=== PATIENT | female | born 1955 ===

== ENCOUNTER 2022-03-23 16:57 | Inpatient (IN) | payer MEDICARE ==
[2022-03-24 06:54] LABS: Basophils % (Auto) 0.4 % (0.0-1.8); Eosinophils # (Auto) 0.1 K/mm3 (0.0-0.4); Eosinophils % (Auto) 1.8 % (0.0-4.3); Hematocrit 39.9 % (30.3-42.9); Hemoglobin 13.3 gm/dl (10.1-14.3); Lymphocytes # (Auto) 2.1 K/mm3 (1.2-5.4); Lymphocytes % (Auto) 25.7 % (13.4-35.0); Mean Corpuscular HGB Conc 33 % (30-34); Mean Corpuscular Volume 82 fl (79-97); Monocytes # (Auto) 0.5 K/mm3 (0.0-0.8); Monocytes % (Auto) 5.5 % (0.0-7.3); Platelet Count 254 K/mm3 (140-440); Red Blood Count 4.86 M/mm3 (3.65-5.03); Red Cell Distribution Width 13.3 % (13.2-15.2)
[2022-03-24 07:19] LABS: Alanine Aminotransferase 16 units/L (7-56); Albumin 3.6 g/dL (3.9-5); Blood Urea Nitrogen 18 mg/dL (7-17); Calcium 8.6 mg/dL (8.4-10.2); HDL Cholesterol 54 mg/dL (40-59); Hemolysis Index 4; LDL Cholesterol,Direct 97 mg/dL (50-130)
[2022-03-24 07:24] LABS: BUN/Creatinine Ratio 36
--- NOTE | 2022-03-24 17:56 | History and Physical Report ---
GP History & Physical - History of Present Illness Date of admission: 03/24/22 Date of Examination: 03/24/22 Reason for Admission: Severe anxiety/depression History of Present Illness: 66 year old female seen in her room today. Patient was unable to communicate with me effectively. Spoke with patients daughter who states that patient has not been sleeping or eating and generally not wanting to participate in any activity. Daughter was not able to confirm patients past dx or medication she was on. PAST PSYCHIATRIC HISTORY: Diagnoses: Depression Suicide attempts or Self-harm behavior: Unable to assess Prior psychiatric hospitalizations:Unable to assess Substance Abuse history:Unable to assess Previous psychiatric medications tried: Unable to assess Outpatient treatment: Unable to assess PAST MEDICAL HISTORY: Family Psychiatric History None reported or documented SOCIAL HISTORY Marital Status: Unable to assess Living Arrangements: With family Employment Status: Unable to assess Access to guns/weapons: Unable to assess Education: Unable to assess History of Abuse: Unable to assess Legal History: Unable to assess REVIEW OF SYSTEMS ROS cannot be reliably obtained from the patient due to her confusion and somnolence. Constitutional: Negative for weight loss ENT: Negative for stridor Respiratory: Negative for cough or hemoptysis All other systems reviewed and are negative Diagnoses: Major Depressive Disorder Treatment Plan Patient will be admitted for inpatient psychiatric evaluation, medication adjustment and close monitoring The patient's behavior, mood, sleep and appetite will be closely monitored. Patient will be enrolled in individual and group therapeutic sessions and encouraged to attend. Patient will be provided with a safe and structured environment. Patient's physical health needs will be addressed by the Hospitalist. Hospitalist Consulted Labs including CBC, CMP, Lipid profile and Hemoglobin A1C ordered Social Assessment will be completed and the [facility] will work with patient and family to ensure a suitable and safe disposition Medication adjustment will be made as clinically indicated Usual Wellness Hinduism/Preservation: - Start Trazodone 50 mg po QHS The patient agreed on the treatment plan, understood the risk, benefit, alternative treatment, potential consequence of no treatment, and gave informed consent. Legal Status: Involuntary Reaction to Hospitalization: Accepting Medications and Allergies Allergies Allergy/AdvReac Type Severity Reaction Status Date / Time No Known Allergies Allergy Unverified 03/23/22 18:06 Home Medications Medication Instructions Recorded Confirmed Last Taken Type Metoprolol [Lopressor] 25 mg PO BID 03/24/22 03/24/22 Unknown History lisinopriL [Lisinopril] 10 mg PO DAILY 03/24/22 03/24/22 Unknown History Results - Results Labs/Vitals: Laboratory Last Values WBC 8.2 K/mm3 (4.5-11.0) 03/24/22 06:06 RBC 4.86 M/mm3 (3.65-5.03) 03/24/22 06:06 Hgb 13.3 gm/dl (10.1-14.3) 03/24/22 06:06 Hct 39.9 % (30.3-42.9) 03/24/22 06:06 MCV 82 fl (79-97) 03/24/22 06:06 MCH 27 pg (28-32) L 03/24/22 06:06 MCHC 33 % (30-34) 03/24/22 06:06 RDW 13.3 % (13.2-15.2) 03/24/22 06:06 Plt Count 254 K/mm3 (140-440) 03/24/22 06:06 Lymph % (Auto) 25.7 % (13.4-35.0) 03/24/22 06:06 [place] % (Auto) 5.5 % (0.0-7.3) 03/24/22 06:06 Eos % (Auto) 1.8 % (0.0-4.3) 03/24/22 06:06 Baso % (Auto) 0.4 % (0.0-1.8) 03/24/22 06:06 Lymph # (Auto) 2.1 K/mm3 (1.2-5.4) 03/24/22 06:06 [place] # (Auto) 0.5 K/mm3 (0.0-0.8) 03/24/22 06:06 Eos # (Auto) 0.1 K/mm3 (0.0-0.4) 03/24/22 06:06 Baso # (Auto) 0.0 K/mm3 (0.0-0.1) 03/24/22 06:06 Seg Neutrophils % 66.6 % (40.0-70.0) 03/24/22 06:06 Seg Neutrophils # 5.5 K/mm3 (1.8-7.7) 03/24/22 06:06 Sodium 132 mmol/L (137-145) L 03/24/22 06:06 Potassium 4.0 mmol/L (3.6-5.0) 03/24/22 06:06 Chloride 100.3 mmol/L (98-107) 03/24/22 06:06 Carbon Dioxide 24 mmol/L (22-30) 03/24/22 06:06 Anion Gap 12 mmol/L 03/24/22 06:06 BUN 18 mg/dL (7-17) H 03/24/22 06:06 Creatinine 0.5 mg/dL (0.6-1.2) L 03/24/22 06:06 Estimated GFR > 60 ml/min 03/24/22 06:06 BUN/Creatinine Ratio 36 % 03/24/22 06:06 Glucose 236 mg/dL (65-100) H 03/24/22 06:06 POC Glucose 212 mg/dL (70-105) H 03/24/22 16:16 Hemoglobin A1c 11.2 % (4-6) H 03/24/22 06:06 Calcium 8.6 mg/dL (8.4-10.2) 03/24/22 06:06 Total Bilirubin 0.30 mg/dL (0.1-1.2) 03/24/22 06:06 AST 13 units/L (5-40) 03/24/22 06:06 ALT 16 units/L (7-56) 03/24/22 06:06 Alkaline Phosphatase 67 units/L (35-129) 03/24/22 06:06 Total Protein 6.2 g/dL (6.3-8.2) L 03/24/22 06:06 Albumin 3.6 g/dL (3.9-5) L 03/24/22 06:06 Albumin/Globulin Ratio 1.4 % 03/24/22 06:06 Triglycerides 93 mg/dL (2-149) 03/24/22 06:06 Cholesterol 162 mg/dL (50-199) 03/24/22 06:06 LDL Cholesterol Direct 97 mg/dL (50-130) 03/24/22 06:06 HDL Cholesterol 54 mg/dL (40-59) 03/24/22 06:06 Cholesterol/HDL Ratio 3.00 % 03/24/22 06:06 TSH 0.682 mlU/mL (0.270-4.200) 03/24/22 06:06 Last Vital Signs Temp 97.4 F L 03/24/22 07:00 Pulse 71 03/24/22 07:00 Resp 18 03/24/22 07:00 BP 183/75 03/24/22 07:00 Pulse Ox 99 03/24/22 07:00 Physical Examination - Constitutional Vitals: Vital Signs Temp Pulse Resp BP Pulse Ox 97.4 F L 71 18 183/75 99 03/24/22 07:00 03/24/22 07:00 03/24/22 07:00 03/24/22 07:00 03/24/22 07:00 Temperature -Last 24 Hours Temperature 97.4 F Temperature 97.5 F Mental Status Exam - Vital signs Last Vital Signs Temp 97.4 F L 03/24/22 07:00 Pulse 71 03/24/22 07:00 Resp 18 03/24/22 07:00 BP 183/75 03/24/22 07:00 Pulse Ox 99 03/24/22 07:00 Physician Certification - Certification Statement Physician Certification Statement: This is an acknowledgement statement that JUANITO DURANMONIKASTEVEN MORGAN is a 66 year old F who requires inpatient psychiatric admission for treatment which could reasonably be expected to improve the patient's condition for Estimated period of time patient will need to remain in the hospital: [ ] Plan for post-hospital care: [ ]
[2022-03-24] MEDS ORDERED: HALOPERIDOL LACTATE 5 MG/1 ML INJ IM PRN (18:00)
--- NOTE | 2022-03-24 19:34 | Consultation ---
History of Present Illness - Reason for Consult Consult date: 03/24/22 Medical management - History of Present Illness The patient is a 66-year-old female with past medical history of type 2 diabetes mellitus, hypertension, and depression who is being managed for loss of appetite and energy. Hospitalist service was consulted for medical management. Past History Past Medical History: diabetes, hypertension Past Surgical History: No surgical history Social history: lives with family, full code Family history: hypertension Medications and Allergies Allergies Allergy/AdvReac Type Severity Reaction Status Date / Time No Known Allergies Allergy Verified 03/24/22 18:00 Home Medications Medication Instructions Recorded Confirmed Last Taken Type Metoprolol [Lopressor] 25 mg PO BID 03/24/22 03/24/22 Unknown History lisinopriL [Lisinopril] 10 mg PO DAILY 03/24/22 03/24/22 Unknown History Active Meds: Active Medications Fish Oil ([place]-3 Fatty Acids/Fish Oil 1 Gram Cap) 4,000 mg PO QDAY FLY Glipizide (Glipizide 5 Mg Tab) 5 mg PO QDDIAB FLY Haloperidol Lactate (Haloperidol Lactate 5 Mg/1 Ml Inj) 5 mg IM Q6H PRN PRN Reason: Agitation Lisinopril (Lisinopril 10 Mg Tab) 20 mg PO QDAY FLY Metformin HCl (Metformin 500 Mg Tab) 1,000 mg PO BIDDIAB FLY Nifedipine (Nifedipine Xl 30 Mg Tab) 30 mg PO QDAY FLY Trazodone HCl (Trazodone 50 Mg Tab) 50 mg PO QHS FLY Review of Systems ROS unobtainable: due to mental status Exam - Physical Exam Narrative exam: Unable to perform full physical exam as the patient is refusing. - Constitutional Vitals: Temp Pulse Resp BP Pulse Ox 97.4 F L 71 18 183/75 99 03/24/22 07:00 03/24/22 07:00 03/24/22 07:00 03/24/22 07:00 03/24/22 17:53 General appearance: Present: no acute distress, well-nourished - EENT Eyes: Present: PERRL, EOM intact Results - Labs CBC & Chem 7: 03/24/22 06:06 03/24/22 06:06 Labs: Abnormal lab results 03/24/22 03/24/22 03/24/22 Range/Units 06:06 06:06 06:06 MCH 27 L (28-32) pg Sodium 132 L (137-145) mmol/L BUN 18 H (7-17) mg/dL Creatinine 0.5 L (0.6-1.2) mg/dL Glucose 236 H (65-100) mg/dL POC Glucose (70-105) mg/dL Hemoglobin A1c 11.2 H (4-6) % Total Protein 6.2 L (6.3-8.2) g/dL Albumin 3.6 L (3.9-5) g/dL 03/24/22 03/24/22 03/24/22 Range/Units 07:06 11:51 16:16 MCH (28-32) pg Sodium (137-145) mmol/L BUN (7-17) mg/dL Creatinine (0.6-1.2) mg/dL Glucose (65-100) mg/dL POC Glucose 225 H 241 H 212 H (70-105) mg/dL Hemoglobin A1c (4-6) % Total Protein (6.3-8.2) g/dL Albumin (3.9-5) g/dL Assessment and Plan The patient is a 66-year-old female with past medical history of type 2 diabetes mellitus, hypertension, and depression who is being managed for loss of appetite and energy. Hospitalist service was consulted for medical management. #Depression Management per primary team #Hypertension - home medications: Lisinopril 10 mg daily, metoprolol tartrate 25 mg twice daily - current medications: Nifedipine 30 mg daily, lisinopril 20 mg daily - SBP goal <160 and DBP goal <90 while inpatient - continue to monitor #Non-insulin dependent type II diabetes mellitus with hyperglycemia - hemoglobin A1c: 11.2 - home regimen: N/A - current regimen: Metformin 1000 mg twice daily, glipizide 5 mg daily - blood glucose goal 140-180 while inpatient - continue to monitor #Mild protein caloric malnutrition Albumin 3.6 Starting dietary supplementation #Advanced care planning -Disease education conducted, care plan discussed, diagnoses discussed, prognosis discussed, and patient acknowledges understanding with care plan -Time: +30 min Thank you for this interesting consult. We will continue to follow.
[2022-03-24] MEDS: NIFEdipine XL 30 MG TAB PO SCH (21:11)
[2022-03-24] MEDS: LISINOPRIL 10 MG TAB PO SCH (21:11)
[2022-03-24] MEDS: traZODone 50 MG TAB PO SCH ×2 (21:13→22:58)
[2022-03-25] MEDS: OMEGA-3 FATTY ACIDS/FISH OIL 1 GRAM CAP PO SCH (09:23)
[2022-03-25] MEDS: metFORMIN 500 MG TAB PO SCH ×2 (09:23→17:00)
[2022-03-25] MEDS: glipiZIDE 5 MG TAB PO SCH (09:23)
[2022-03-25] MEDS: LISINOPRIL 10 MG TAB PO SCH (09:24)
[2022-03-25] MEDS: NIFEdipine XL 30 MG TAB PO SCH (09:26)
[2022-03-25] MEDS: INSULIN NPH/REGULAR 70/30 INJ SUB-Q SCH ×3 (12:04→18:24)
[2022-03-25] MEDS: INSULIN REGULAR, HUMAN 100 UNITS/1 ML SUB-Q SCH ×3 (12:05→21:48)
--- NOTE | 2022-03-25 14:54 | Progress Note ---
Subjective Date of service: 03/25/22 Subjective Comment: DATE SEEN: 03/25/2022 Patient seen today. Patient was on the phone video calling with her son. Patient was up and dressed looking better. Patients son made inquiries about patients care. and care was explained to him in details. Son informed us on patients medication, and list will be updated. Patient did not say anything though out the time i spoke with son. PAST PSYCHIATRIC HISTORY: Diagnoses: Depression Suicide attempts or Self-harm behavior: Unable to assess Prior psychiatric hospitalizations:Unable to assess Substance Abuse history:Unable to assess Previous psychiatric medications tried: Unable to assess Outpatient treatment: Unable to assess PAST MEDICAL HISTORY: Family Psychiatric History None reported or documented SOCIAL HISTORY Marital Status: Unable to assess Living Arrangements: With family Employment Status: Unable to assess Access to guns/weapons: Unable to assess Education: Unable to assess History of Abuse: Unable to assess Legal History: Unable to assess REVIEW OF SYSTEMS ROS cannot be reliably obtained from the patient due to her confusion and somnolence. Constitutional: Negative for weight loss ENT: Negative for stridor Respiratory: Negative for cough or hemoptysis All other systems reviewed and are negative Diagnoses: Major Depressive Disorder Treatment Plan Patient will be admitted for inpatient psychiatric evaluation, medication adjustment and close monitoring The patient's behavior, mood, sleep and appetite will be closely monitored. Patient will be enrolled in individual and group therapeutic sessions and encouraged to attend. Patient will be provided with a safe and structured environment. Patient's physical health needs will be addressed by the Hospitalist. Hospitalist Consulted Labs including CBC, CMP, Lipid profile and Hemoglobin A1C ordered Social Assessment will be completed and the Transitional Living Specialist will work with patient and family to ensure a suitable and safe disposition Medication adjustment will be made as clinically indicated Usual Wellness Caodaism/Preservation: - Start Trazodone 50 mg po QHS The patient agreed on the treatment plan, understood the risk, benefit, alternative treatment, potential consequence of no treatment, and gave informed consent. Legal Status: Involuntary Reaction to Hospitalization: Accepting Medications and Allergies Medications and Allergies Allergies Allergy/AdvReac Type Severity Reaction Status Date / Time No Known Allergies Allergy Verified 03/24/22 18:00 Home Medications Medication Instructions Recorded Confirmed Last Taken Type Metoprolol [Lopressor] 25 mg PO BID 03/24/22 03/24/22 Unknown History lisinopriL [Lisinopril] 10 mg PO DAILY 03/24/22 03/24/22 Unknown History Active Meds: Active Medications Fish Oil ([place]-3 Fatty Acids/Fish Oil 1 Gram Cap) 4,000 mg PO QDAY [facility] Last Admin: 03/25/22 09:23 Dose: Not Given Glipizide (Glipizide 5 Mg Tab) 5 mg PO QDDIAB [facility] Last Admin: 03/25/22 09:23 Dose: Not Given Haloperidol Lactate (Haloperidol Lactate 5 Mg/1 Ml Inj) 5 mg IM Q6H PRN PRN Reason: Agitation Insulin Human Isoph/Insulin Regular (Insulin Nph/Regular 70/30 Inj) 10 unit SUB-Q BIDDIAB [facility] Last Admin: 03/25/22 12:04 Dose: Not Given Insulin Human Regular (Insulin Regular, Human 100 Units/1 Ml) 0 units SUB-Q [facility]; Protocol Last Admin: 03/25/22 12:05 Dose: Not Given Lisinopril (Lisinopril 10 Mg Tab) 20 mg PO QDAY [facility] Last Admin: 03/25/22 09:24 Dose: Not Given Metformin HCl (Metformin 500 Mg Tab) 1,000 mg PO BIDDIAB [facility] Last Admin: 03/25/22 09:23 Dose: Not Given Nifedipine (Nifedipine Xl 30 Mg Tab) 30 mg PO QDAY [facility] Last Admin: 03/25/22 09:26 Dose: Not Given Trazodone HCl (Trazodone 50 Mg Tab) 50 mg PO QHS [facility] Last Admin: 03/24/22 22:58 Dose: 50 mg Results - Results Labs/Vitals: Laboratory Last Values WBC 8.2 K/mm3 (4.5-11.0) 03/24/22 06:06 RBC 4.86 M/mm3 (3.65-5.03) 03/24/22 06:06 Hgb 13.3 gm/dl (10.1-14.3) 03/24/22 06:06 Hct 39.9 % (30.3-42.9) 03/24/22 06:06 MCV 82 fl (79-97) 03/24/22 06:06 MCH 27 pg (28-32) L 03/24/22 06:06 MCHC 33 % (30-34) 03/24/22 06:06 RDW 13.3 % (13.2-15.2) 03/24/22 06:06 Plt Count 254 K/mm3 (140-440) 03/24/22 06:06 Lymph % (Auto) 25.7 % (13.4-35.0) 03/24/22 06:06 [place] % (Auto) 5.5 % (0.0-7.3) 03/24/22 06:06 Eos % (Auto) 1.8 % (0.0-4.3) 03/24/22 06:06 Baso % (Auto) 0.4 % (0.0-1.8) 03/24/22 06:06 Lymph # (Auto) 2.1 K/mm3 (1.2-5.4) 03/24/22 06:06 [place] # (Auto) 0.5 K/mm3 (0.0-0.8) 03/24/22 06:06 Eos # (Auto) 0.1 K/mm3 (0.0-0.4) 03/24/22 06:06 Baso # (Auto) 0.0 K/mm3 (0.0-0.1) 03/24/22 06:06 Seg Neutrophils % 66.6 % (40.0-70.0) 03/24/22 06:06 Seg Neutrophils # 5.5 K/mm3 (1.8-7.7) 03/24/22 06:06 Sodium 132 mmol/L (137-145) L 03/24/22 06:06 Potassium 4.0 mmol/L (3.6-5.0) 03/24/22 06:06 Chloride 100.3 mmol/L (98-107) 03/24/22 06:06 Carbon Dioxide 24 mmol/L (22-30) 03/24/22 06:06 Anion Gap 12 mmol/L 03/24/22 06:06 BUN 18 mg/dL (7-17) H 03/24/22 06:06 Creatinine 0.5 mg/dL (0.6-1.2) L 03/24/22 06:06 Estimated GFR > 60 ml/min 03/24/22 06:06 BUN/Creatinine Ratio 36 % 03/24/22 06:06 Glucose 236 mg/dL (65-100) H 03/24/22 06:06 POC Glucose 235 mg/dL (70-105) H 03/25/22 11:39 Hemoglobin A1c 11.2 % (4-6) H 03/24/22 06:06 Calcium 8.6 mg/dL (8.4-10.2) 03/24/22 06:06 Total Bilirubin 0.30 mg/dL (0.1-1.2) 03/24/22 06:06 AST 13 units/L (5-40) 03/24/22 06:06 ALT 16 units/L (7-56) 03/24/22 06:06 Alkaline Phosphatase 67 units/L (35-129) 03/24/22 06:06 Total Protein 6.2 g/dL (6.3-8.2) L 03/24/22 06:06 Albumin 3.6 g/dL (3.9-5) L 03/24/22 06:06 Albumin/Globulin Ratio 1.4 % 03/24/22 06:06 Triglycerides 93 mg/dL (2-149) 03/24/22 06:06 Cholesterol 162 mg/dL (50-199) 03/24/22 06:06 LDL Cholesterol Direct 97 mg/dL (50-130) 03/24/22 06:06 HDL Cholesterol 54 mg/dL (40-59) 03/24/22 06:06 Cholesterol/HDL Ratio 3.00 % 03/24/22 06:06 TSH 0.682 mlU/mL (0.270-4.200) 03/24/22 06:06 Last Vital Signs Temp 97.5 F L 03/24/22 19:01 Pulse 84 03/24/22 21:11 Resp 18 03/24/22 19:01 BP 183/93 03/24/22 21:11 Pulse Ox 99 03/24/22 22:23
[2022-03-25] MEDS ORDERED: INSULIN REGULAR, HUMAN 100 UNITS/1 ML SUB-Q ONE ×2 (17:13)
[2022-03-25] MEDS ORDERED: DEXTROSE 50% IN WATER (25GM) 50 ML SYRINGE IV PRN (17:19)
--- NOTE | 2022-03-25 17:20 | Progress Note ---
Assessment and Plan Assessment and plan: The patient is a 66-year-old female with past medical history of type 2 diabetes mellitus, hypertension, and depression who is being managed for loss of appetite and energy. Hospitalist service was consulted for medical management. #Depression Management per primary team #Hypertension - home medications: Lisinopril 10 mg daily, metoprolol tartrate 25 mg twice daily - current medications: Nifedipine 30 mg daily, lisinopril 20 mg daily - SBP goal <160 and DBP goal <90 while inpatient - continue to monitor #Insulin dependent type II diabetes mellitus with hyperglycemia - hemoglobin A1c: 11.2 - home regimen: N/A - current regimen: Metformin 1000 mg twice daily, glipizide 5 mg daily, NPH 70/30 10U BID + moderate SSI - blood glucose goal 140-180 while inpatient - continue to monitor #Mild protein caloric malnutrition Albumin 3.6 Discontinuing dietary supplementation as this could be a source of the hyperglycemia #Advanced care planning -Disease education conducted, care plan discussed, diagnoses discussed, prognosis discussed, and patient acknowledges understanding with care plan -Time: +30 min Thank you for this interesting consult. We will continue to follow. Disposition Plan: Continue medical management Total Time Spent with Patient (Minutes): 30 min History Interval history: No acute events overnight. Hospitalist Physical - Constitutional Vitals: Temp Pulse Resp BP Pulse Ox 97.5 F L 84 18 183/93 99 03/24/22 19:01 03/24/22 21:11 03/24/22 19:01 03/24/22 21:11 03/24/22 22:23 General appearance: Present: no acute distress, well-nourished - EENT Eyes: Present: PERRL ENT: hearing intact, clear oral mucosa - Neck Neck: Present: supple, normal ROM - Respiratory Respiratory effort: normal - Cardiovascular Rhythm: regular Heart Sounds: Present: S1 & S2 - Extremities Extremities: no ischemia, pulses intact, pulses symmetrical, normal temperature, normal color Peripheral Pulses: within normal limits - Abdominal General gastrointestinal: soft, non-tender, non-distended, normal bowel sounds - Integumentary Integumentary: Present: clear, warm, dry - Psychiatric Psychiatric: agitated - Neurologic Neurologic: CNII-XII intact, moves all extremities - Allied Health Allied health notes reviewed: nursing Results - Labs CBC & Chem 7: 03/24/22 06:06 03/24/22 06:06 Labs: Laboratory Last Values WBC 8.2 K/mm3 (4.5-11.0) 03/24/22 06:06 RBC 4.86 M/mm3 (3.65-5.03) 03/24/22 06:06 Hgb 13.3 gm/dl (10.1-14.3) 03/24/22 06:06 Hct 39.9 % (30.3-42.9) 03/24/22 06:06 MCV 82 fl (79-97) 03/24/22 06:06 MCH 27 pg (28-32) L 03/24/22 06:06 MCHC 33 % (30-34) 03/24/22 06:06 RDW 13.3 % (13.2-15.2) 03/24/22 06:06 Plt Count 254 K/mm3 (140-440) 03/24/22 06:06 Lymph % (Auto) 25.7 % (13.4-35.0) 03/24/22 06:06 [place] % (Auto) 5.5 % (0.0-7.3) 03/24/22 06:06 Eos % (Auto) 1.8 % (0.0-4.3) 03/24/22 06:06 Baso % (Auto) 0.4 % (0.0-1.8) 03/24/22 06:06 Lymph # (Auto) 2.1 K/mm3 (1.2-5.4) 03/24/22 06:06 [place] # (Auto) 0.5 K/mm3 (0.0-0.8) 03/24/22 06:06 Eos # (Auto) 0.1 K/mm3 (0.0-0.4) 03/24/22 06:06 Baso # (Auto) 0.0 K/mm3 (0.0-0.1) 03/24/22 06:06 Seg Neutrophils % 66.6 % (40.0-70.0) 03/24/22 06:06 Seg Neutrophils # 5.5 K/mm3 (1.8-7.7) 03/24/22 06:06 Sodium 132 mmol/L (137-145) L 03/24/22 06:06 Potassium 4.0 mmol/L (3.6-5.0) 03/24/22 06:06 Chloride 100.3 mmol/L (98-107) 03/24/22 06:06 Carbon Dioxide 24 mmol/L (22-30) 03/24/22 06:06 Anion Gap 12 mmol/L 03/24/22 06:06 BUN 18 mg/dL (7-17) H 03/24/22 06:06 Creatinine 0.5 mg/dL (0.6-1.2) L 03/24/22 06:06 Estimated GFR > 60 ml/min 03/24/22 06:06 BUN/Creatinine Ratio 36 % 03/24/22 06:06 Glucose 236 mg/dL (65-100) H 03/24/22 06:06 POC Glucose 357 mg/dL (70-105) H 03/25/22 16:15 Hemoglobin A1c 11.2 % (4-6) H 03/24/22 06:06 Calcium 8.6 mg/dL (8.4-10.2) 03/24/22 06:06 Total Bilirubin 0.30 mg/dL (0.1-1.2) 03/24/22 06:06 AST 13 units/L (5-40) 03/24/22 06:06 ALT 16 units/L (7-56) 03/24/22 06:06 Alkaline Phosphatase 67 units/L (35-129) 03/24/22 06:06 Total Protein 6.2 g/dL (6.3-8.2) L 03/24/22 06:06 Albumin 3.6 g/dL (3.9-5) L 03/24/22 06:06 Albumin/Globulin Ratio 1.4 % 03/24/22 06:06 Triglycerides 93 mg/dL (2-149) 03/24/22 06:06 Cholesterol 162 mg/dL (50-199) 03/24/22 06:06 LDL Cholesterol Direct 97 mg/dL (50-130) 03/24/22 06:06 HDL Cholesterol 54 mg/dL (40-59) 03/24/22 06:06 Cholesterol/HDL Ratio 3.00 % 03/24/22 06:06 TSH 0.682 mlU/mL (0.270-4.200) 03/24/22 06:06 [place]/IV: Voiding Method Toilet Active Medications - Current Medications Current Medications: Generic Name Dose Route Start Last Admin Trade Name Freq PRN Reason Stop Dose Admin Fish Oil 4,000 mg 03/25/22 10:00 03/25/22 09:23 [place]-3 Fatty Acids/Fish Oil 1 Gram Cap PO Not Given QDAY FLY Glipizide 5 mg 03/25/22 08:00 03/25/22 09:23 Glipizide 5 Mg Tab PO Not Given QDDIAB FLY Haloperidol Lactate 5 mg 03/24/22 18:00 Haloperidol Lactate 5 Mg/1 Ml Inj IM Q6H PRN Agitation Insulin Human Isoph/Insulin Regular 10 unit 03/25/22 09:30 03/25/22 16:45 Insulin Nph/Regular 70/30 Inj SUB-Q 10 unit BIDDIAB [facility] Administration Insulin Human Regular 0 units 03/25/22 11:30 03/25/22 17:00 Insulin Regular, Human 100 Units/1 Ml SUB-Q Not Given ACHS [facility] Protocol Insulin Human Regular 15 units 03/25/22 17:13 Insulin Regular, Human 100 Units/1 Ml SUB-Q 03/25/22 17:14 ONCE ONE Lisinopril 20 mg 03/24/22 20:00 03/25/22 09:24 Lisinopril 10 Mg Tab PO Not Given QDAY [facility] Metformin HCl 1,000 mg 03/25/22 08:00 03/25/22 17:00 Metformin 500 Mg Tab PO 1,000 mg BIDDIAB FLY Administration Nifedipine 30 mg 03/24/22 20:00 03/25/22 09:26 Nifedipine Xl 30 Mg Tab PO Not Given QDAY [facility] Paroxetine HCl 20 mg 03/26/22 10:00 Paroxetine 20 Mg Tab PO QDAY [facility] Trazodone HCl 50 mg 03/24/22 22:00 03/24/22 22:58 Trazodone 50 Mg Tab PO 50 mg QHS FLY Administration Nutrition/Malnutrition Assess - Dietary Evaluation Nutrition/Malnutrition Findings: Nutrition Notes Start: 03/25/22 16:19 Freq: Status: Active Protocol: Document 03/25/22 16:19 YULI (Rec: 03/25/22 16:41 YULI [id number]) Nutrition Notes Need for Assessment generated from: MD Order Initial or Follow up Assessment Current Diagnosis Diabetes,Hypertension, Malnutrition Other Pertinent Diagnosis Anxiety, Depression, Debility, Anorexia. Current Diet Cardiac/Consistent Carbohydrates Diet (since B ). Labs/Tests 03/24: Na 132, BUN 18, Crea 0. 5, Glu 236, HbA1c 11.2%. Pertinent Medications 03/25: Fish Oil, others nutritionally unremarkable. 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 Weight Status Appropriate Subjective/Other Information RD consult for dietary supplementation assessment. Pt's PO intake of meals improved from yesterday to a Good (100%) and well tolerated , according to ADL notes. I will not prescribe dietary supplements at this time. Pt is on Room Air, O2 saturation 99^, according to Vital Signs notes. Pt shows some unspecified bruises as signs of concern for skin risk at the time, according to Physical Assessment History notes. Percent of energy/protein needs met: Prescribed Cardiac/Consistent Carbohydrates Diet provides for energy/protein needs (1, 977 Kcal/86 g) during LOS. Burn Absent Trauma Absent GI Symptoms None Food Allergy No Skin Integrity/Comment Unspecified bruises. Current % PO Good (75-100%) Minimum of two criteria No Energy Intake (non-severe) <75% Estimated Energy Requirement >7 days Fluid Accumulation N/A Reduced Quality Improvement Manager Strength N/A (non-severe) Protein-Calorie Malnutrition N\A #1 Nutrition Diagnosis No nutrition diagnosis at this time Is patient on ventilator? No Is Patient Ambulatory and/or Out of Bed Yes REE-([place]-ambulatory/OOB) [ 1843.400 [id number]] Kcal/Kg value to use for calculation 29 Approximate Energy Requirements Using 2250 kcal/Kg Calculation Used for Recommendations Kcal/kg Additional Notes Protein: 1-1.2 g/Kg ABW; 78-94 g/day. Fluids: 1 ml/Kcal, or as per MD. Nutrition Intervention Change Diet Order: Continue Cardiac/Consistent Carbohydrates Diet. Revisit per MD consult or patient Sign Off request: Additional Comments Continue monitoring food tolerance, %PO intake of meals , and BM.
[2022-03-25] MEDS: traZODone 50 MG TAB PO SCH (21:42)
[2022-03-26 01:46] VITALS: BP 100/65
[2022-03-26] MEDS: INSULIN REGULAR, HUMAN 100 UNITS/1 ML SUB-Q SCH ×3 (07:30→16:59)
[2022-03-26] MEDS: glipiZIDE 5 MG TAB PO SCH (08:00)
[2022-03-26] MEDS: INSULIN NPH/REGULAR 70/30 INJ SUB-Q SCH ×2 (08:00→16:58)
[2022-03-26] MEDS: metFORMIN 500 MG TAB PO SCH ×2 (08:00→17:15)
--- NOTE | 2022-03-26 09:23 | Discharge Summary ---
Providers - Providers Date of Admission: 03/24/22 04:58 Date of discharge: 03/26/22 Attending physician: EBONY FRY MD 03/24/22 03:39 Consult to Physician [CONS] Routine Comment: Consulting Provider: CARI DURON Physician Instructions: Please manage problems per H&P. Reason For Exam: New admission 03/24/22 18:24 Consult to Mental Health [CONS] Routine Reason For Exam: new psych admission Primary care physician: EDDY CURRENT INSPECTOR Hospitalization Reason for admission: depression Admitting Diagnosis: F33.9 - MAJOR DEPRESSIVE DISORDER, RECURRENT, UNSPECIFIED Condition: Stable Hospital course: The patient was provided inpatient psychiatric treatment with safe and suppo rtive care, medication adjustment, adverse effect monitoring, medical evaluations, medical treatments, assessment and psycho-education. The patient's mood, cognition, behavior, moral support are improved and stabilized. St the time of discharge, the patient had no endangering behavior and no debilitating adverse effects. The patient agreed on potential consequences of no treatment and gave informed consent. Disposition: 01 HOME / SELF CARE / HOMELESS Time spent for discharge: 35 Allergies/Adverse Reactions: Allergies No Known Allergies Allergy (Verified 03/24/22 18:00) Vital Signs: Last Vital Signs Temp 97.3 F L 03/26/22 01:44 Pulse 84 03/26/22 01:44 Resp 16 03/26/22 01:44 BP 100/65 03/26/22 01:44 Pulse Ox 97 03/26/22 01:44 Last Lab: Laboratory Last Values WBC 8.2 K/mm3 (4.5-11.0) 03/24/22 06:06 RBC 4.86 M/mm3 (3.65-5.03) 03/24/22 06:06 Hgb 13.3 gm/dl (10.1-14.3) 03/24/22 06:06 Hct 39.9 % (30.3-42.9) 03/24/22 06:06 MCV 82 fl (79-97) 03/24/22 06:06 MCH 27 pg (28-32) L 03/24/22 06:06 MCHC 33 % (30-34) 03/24/22 06:06 RDW 13.3 % (13.2-15.2) 03/24/22 06:06 Plt Count 254 K/mm3 (140-440) 03/24/22 06:06 Lymph % (Auto) 25.7 % (13.4-35.0) 03/24/22 06:06 [place] % (Auto) 5.5 % (0.0-7.3) 03/24/22 06:06 Eos % (Auto) 1.8 % (0.0-4.3) 03/24/22 06:06 Baso % (Auto) 0.4 % (0.0-1.8) 03/24/22 06:06 Lymph # (Auto) 2.1 K/mm3 (1.2-5.4) 03/24/22 06:06 [place] # (Auto) 0.5 K/mm3 (0.0-0.8) 03/24/22 06:06 Eos # (Auto) 0.1 K/mm3 (0.0-0.4) 03/24/22 06:06 Baso # (Auto) 0.0 K/mm3 (0.0-0.1) 03/24/22 06:06 Seg Neutrophils % 66.6 % (40.0-70.0) 03/24/22 06:06 Seg Neutrophils # 5.5 K/mm3 (1.8-7.7) 03/24/22 06:06 Sodium 132 mmol/L (137-145) L 03/24/22 06:06 Potassium 4.0 mmol/L (3.6-5.0) 03/24/22 06:06 Chloride 100.3 mmol/L (98-107) 03/24/22 06:06 Carbon Dioxide 24 mmol/L (22-30) 03/24/22 06:06 Anion Gap 12 mmol/L 03/24/22 06:06 BUN 18 mg/dL (7-17) H 03/24/22 06:06 Creatinine 0.5 mg/dL (0.6-1.2) L 03/24/22 06:06 Estimated GFR > 60 ml/min 03/24/22 06:06 BUN/Creatinine Ratio 36 % 03/24/22 06:06 Glucose 236 mg/dL (65-100) H 03/24/22 06:06 POC Glucose 188 mg/dL (70-105) H 03/26/22 06:42 Hemoglobin A1c 11.2 % (4-6) H 03/24/22 06:06 Calcium 8.6 mg/dL (8.4-10.2) 03/24/22 06:06 Total Bilirubin 0.30 mg/dL (0.1-1.2) 03/24/22 06:06 AST 13 units/L (5-40) 03/24/22 06:06 ALT 16 units/L (7-56) 03/24/22 06:06 Alkaline Phosphatase 67 units/L (35-129) 03/24/22 06:06 Total Protein 6.2 g/dL (6.3-8.2) L 03/24/22 06:06 Albumin 3.6 g/dL (3.9-5) L 03/24/22 06:06 Albumin/Globulin Ratio 1.4 % 03/24/22 06:06 Triglycerides 93 mg/dL (2-149) 03/24/22 06:06 Cholesterol 162 mg/dL (50-199) 03/24/22 06:06 LDL Cholesterol Direct 97 mg/dL (50-130) 03/24/22 06:06 HDL Cholesterol 54 mg/dL (40-59) 03/24/22 06:06 Cholesterol/HDL Ratio 3.00 % 03/24/22 06:06 TSH 0.682 mlU/mL (0.270-4.200) 03/24/22 06:06 Core Measure Documentation - Palliative Care Palliative Care/ Comfort Measures: Not Applicable - Core Measures Any of the following diagnoses?: none Exam - Constitutional Vitals: Temp Pulse Resp BP Pulse Ox 97.3 F L 84 16 100/65 97 03/26/22 01:44 03/26/22 01:44 03/26/22 01:44 03/26/22 01:44 03/26/22 01:44 General appearance: Present: no acute distress - EENT Eyes: Present: PERRL, EOM intact ENT: hearing intact, clear oral mucosa - Neck Neck: Present: supple, normal ROM - Respiratory Respiratory effort: normal Plan Activity: advance as tolerated Weight Bearing Status: Weight Bear as Tolerated Care Plan Goals: Maintain good stable mental health Plan of Treatment: MDD Assessment: The patient should be compliant with medications, not to use drugs, and not to drink alcohol. The patient understands that if suicidal ideas, homicidal ideas or any endangering feeling arise, the patient should seek assistance including, but not limited to crisis hotline, and emergency room. Follow up with: PRIMARY CARE, [Primary Care Provider] - 7 Days Prescriptions: traZODone [Desyrel] 50 mg PO QHS #30 tablet [place]-3 Fatty Acids/Fish Oil [Fish Oil] 4,000 mg PO QDAY #120 capsule metFORMIN [Glucophage] 1,000 mg PO BIDDIAB #60 tablet glipiZIDE [Glucotrol] 5 mg PO QDDIAB #30 tablet PARoxetine [Paxil] 20 mg PO QDAY #30 tablet
[2022-03-26] MEDS: OMEGA-3 FATTY ACIDS/FISH OIL 1 GRAM CAP PO SCH (10:00)
[2022-03-26] MEDS: NIFEdipine XL 30 MG TAB PO SCH (10:00)
[2022-03-26] MEDS ORDERED: PARoxetine 20 MG TAB PO SCH (10:00)
[2022-03-26] MEDS: LISINOPRIL 10 MG TAB PO SCH (10:00)
== END 2022-03-26 19:28 | disposition home or self-care (01) | DRG 885 ==
LOC: 3A 16:57 → UNDOADMIN 16:57 → EDBD 03-24 04:58 → 5A 03-24 04:58
PROVIDERS: ADMIT Psychiatry & Neurology Psychiatry; ATTEND Psychiatry & Neurology Psychiatry
DX: F33.9 Major depressive disorder, recurrent, unspecified (principal); E44.1 Mild protein-calorie malnutrition; I10 Essential (primary) hypertension; E11.65 Type 2 diabetes mellitus with hyperglycemia; Z79.899 Other long term (current) drug therapy; Z82.49 Family history of ischemic heart disease and other diseases of the circulatory system; Z68.23 Body mass index [BMI] 23.0-23.9, adult; Z79.84 Long term (current) use of oral hypoglycemic drugs
CPT/HCPCS: 36415; 80053; 80061; 82962; 83036; 84443; 85025; G0378; Q0177; Q9967; J1815